=== PATIENT | female | born 1985 | race Caucasian/White ===

== ENCOUNTER → 2017-09-06 | Day surgery (SDC) | payer BC ==
[~2017-09-06] MED LIST: LIDOCAINE 1% PF 2 ML VIAL. ID; LIDOCAINE 2% PF Vial for OR 5 ML VIAL.; MIDAZOLAM HCL/PF 2 MG/2 ML VIAL. IV; PROPOFOL 20 ML IV; PROPOFOL 40 ML IV; fentaNYL PF VIAL 100 MCG/2 ML VIAL IV
[2017-09-06] MEDS: IV RINGERS,LACTATED 1000ML 1,000 ML IV (07:10)
[2017-09-06 07:14] LABS: NEG OBC UR NEG; POS OBC UR POS; U PREG PATIENT NEGATIVE (NEG)
[2017-09-06 10:02] LABS: CALCIUM 8.8 mg/dL (8.5-10.1)
[2017-09-06 10:26] LABS: THYROID STIM HORMONE (TSH) 15.905 uIU/mL (0.358-3.74)
[2017-09-06 19:20] LABS: THYROXINE 6.8 ug/dL (4.5-12.0)
[2017-09-09 15:27] LABS: GLIA IGA 3 units (0-19); GLIA IGG 2 units (0-19); TRANSGLUTAMINASE IGA AB <2 U/mL (0-3); TRANSGLUTAMINASE IGG AB <2 U/mL (0-5)
== END | disposition home or self-care (01) ==
LOC: SURG 06:39
DX: D12.3 Benign neoplasm of transverse colon (principal); D12.5 Benign neoplasm of sigmoid colon; K64.0 First degree hemorrhoids; Z72.89 Other problems related to lifestyle; F17.200 Nicotine dependence, unspecified, uncomplicated; Z83.79 Family history of other diseases of the digestive system; K21.9 Gastro-esophageal reflux disease without esophagitis
CPT/HCPCS: 36415; 45380; 45385; 81025; 82310; 83516; 84436; 84443; 88305; J2001; J2704

== ENCOUNTER 2021-06-09 06:51 | Day surgery (SDC) | payer BC ==
[~2021-06-09] VITALS: Ht 166.4 cm; Wt 86.0 kg
[~2021-06-09 06:51] MED LIST changes: +ESOM20CA PO; +IV RINGERS,LACTATED 1000ML 1,000 ML IV SCH; +LEVO150T5 PO; -LIDOCAINE 1% PF 2 ML VIAL. ID; +LIDOCAINE 1% PF 30 ML VIAL. ONE; +LIDOCAINE 2% PF 5 ML VIAL. ONE; -LIDOCAINE 2% PF Vial for OR 5 ML VIAL.; -MIDAZOLAM HCL/PF 2 MG/2 ML VIAL. IV; +PROCHLORPERAZINE 10 MG/2 ML VIAL. IVP PRN; +PROPOFOL 10 MG/ML (20ML) VIAL. IV ONE; -PROPOFOL 20 ML IV; -PROPOFOL 40 ML IV; +SUMA100T4 PO; +TOPI50TA8 PO; -fentaNYL PF VIAL 100 MCG/2 ML VIAL IV; +fentaNYL PF VIAL 100 MCG/2 ML VIAL IVP PRN
[2021-06-09] MEDS ORDERED: BUPIVACAINE MPF 0.25% 30 ML VIAL. ONE (07:13)
[2021-06-09 07:24] VITALS: BP 104/61
--- NOTE | 2021-06-09 07:38 | DISCH ---
DISCHARGE INSTRUCTIONS Condition on Discharge Condition on Discharge: Stable Activity After Discharge Activity Instructions for Disc: Resume previous activity, Activity as cortez ated, Avoid exertion Bathing Instructions: Shower-keep dressing dry Lifting Instructions after Dis: No heavy lifting, No pulling or pushing, Do not lift >10 pounds Exercise Instruction after Dis: Walk 10 min, 3 x per day Driving Instructions after Dis: Do not drive (while taking narcotic pain meds) Diet after Discharge Diet after Discharge: Regular Wound Incision Care Wound/Incision Care: Ice to area for comfort, Keep wound elevated, Change dressing (POD #3), Other, see below (Cover incision with large bandaid until first follow up. Do not sumbmerge in water under any circumstances.) Other wound/incision instructi: Keep dressing clean and dry. May remove on post-op day #3. Contacting the DRShanda after DC Call your doctor for: If your condition worsens Follow-Up Follow up with: Follow up with orthopedic clinic upon discharge. [phone] Treatment/Equipment after DC Adaptive Equipment Issued: None KRISTY POTTER Jun 09, 2021 07:38
[2021-06-09] MEDS ORDERED: TRAM50TA PO (07:39)
[2021-06-09] MEDS ORDERED: ONDA4TAB12 PO (07:41)
--- NOTE | 2021-06-09 08:23 | HP ---
DATE OF SERVICE: 06/09/2021 ADMIT DATE: 06/09/2021 PREOP HISTORY AND PHYSICAL PREOPERATIVE DIAGNOSIS: Carpal tunnel syndrome, bilateral. BRIEF HISTORY: The patient is a 35-year-old right hand dominant female who was previously seen in the office back in March continuing with significant wrist pain as she discussed it over the last 10 years. This is associated with significant amount of numbness and tingling in the thumb and index finger of the hand. Sometimes, it will involve the middle finger. She has noticed some weakness as far as her pinch is concerned. She sees a chiropractor who was trying to alleviate the symptoms, which helped for her for about a year after that; however, this continued to have significant problems. She therefore has unremitting pain and did undergo an EMG study. PAST MEDICAL HISTORY: Remarkable for a rotator cuff, hyperthyroidism. PAST SURGICAL HISTORY: Cholecystectomy in 2019. FAMILY HISTORY: Diabetes and hypertension, history of coronary artery disease. SOCIAL HISTORY: The patient is a current smoker, smokes 1 pack of cigarettes per day, drinks alcohol 2-4 times per month with 3-4 drinks per occasion. MEDICATIONS: Topiramate, esomeprazole, sumatriptan. MEDICATION ALLERGIES: No known drug allergies. PHYSICAL EXAMINATION: GENERAL: She is alert and oriented x 3. VITAL SIGNS: She is 65.5 inches tall. She is 190 pounds. Vital signs are stable today. HEART: Her heart is clear. Regular rate and rhythm. LUNGS: Her lungs stovall are clear to auscultation in all stovall. ABDOMEN: Soft and nontender. MUSCULOSKELETAL: The examination reveals her to be positive Tinel's and a positive Phalen's test as well as positive carpal compression test bilaterally at this point. Decreased sensation in the median distribution, which is quite significant. IMPRESSION: Bilateral carpal tunnel syndrome, right greater than left. PLAN: At this time, we have gone over the EMG again that was done by Dr. Hernández. We have also talked with the patient about treatment options. She still wishes to undergo a carpal tunnel release on the right. Therefore, we have gone over the risks, complications as well as benefits and expectations of surgery, postoperative protocol and followup. We will get this done as soon as she sees anesthesia. RODO/RAYMOND DR: Jorge L TID: [id number]
[2021-06-09] MEDS ORDERED: KETOROLAC 30 MG/ML VIAL. ONE (08:59)
--- NOTE | 2021-06-09 09:02 | PDOC4 ---
OPERATIVE NOTE Date: Date: Jun 09, 2021 Pre-Op Diagnosis: 1. 35 y/o F carpal tunnel syndrome RUE Post-Op Diagnosis: Same Procedure Performed: 1. R open carpal tunnel release Surgeon: Fanta Anesthesia Type: General Blood Loss: 10cc Specimans Obtained: None Complications: Patient tolerated the procedure well without any complications acutely. Operative Note: See dictation. KRISTY POTTER Jun 09, 2021 09:02
[2021-06-09] MEDS ORDERED: fentaNYL PF VIAL 100 MCG/2 ML VIAL ONE ×2 (09:05→09:36)
[2021-06-09] MEDS ORDERED: PROPOFOL 10 MG/ML (20ML) VIAL. IV ONE (09:05)
[2021-06-09] MEDS ORDERED: DEXAMETHASONE SOD PHOS 4 MG/ML VIAL ONE (09:12)
[2021-06-09] MEDS ORDERED: ONDANSETRON PF 4 MG/2 ML VIAL. ONE (09:12)
[2021-06-09] MEDS ORDERED: SEVOFLURANE 31 TO 60 MINUTES. IH ONE (09:27)
[2021-06-09] MEDS ORDERED: traMADol 50 MG TABLET PO ONE (09:30)
[2021-06-09] MEDS: fentaNYL PF VIAL 100 MCG/2 ML VIAL IVP PRN ×2 (09:38→09:46)
[2021-06-09 10:00] VITALS: BP 100/61
--- NOTE | 2021-06-09 14:48 | OP ---
DATE OF SURGERY: 06/09/2021 PREOPERATIVE DIAGNOSIS: Carpal tunnel syndrome, chronic, right. POSTOPERATIVE DIAGNOSIS: Carpal tunnel syndrome, chronic, right. PROCEDURE: Right carpal tunnel release. SURGEON: Antwan Jewell Jr, DO ANESTHESIA: General. COMPLICATIONS: None. ESTIMATED BLOOD LOSS: 5 mL DESCRIPTION OF PROCEDURE: Right upper extremity was then prepped and draped in a sterile fashion. Incision was made directly over the area of the transverse carpal ligament in line with the radial border of the digit. This was carefully down through skin and subcutaneous tissues down through the palmar fascia. Once through the palmar fascia, the transverse carpal ligament was identified at this point. A minimal portion of the insertion of the thenar musculature was removed in order to make the incision longitudinally through the transverse carpal ligament, which was released in its entirety. The underlying nerve was noted to be intact. The wound was then thoroughly irrigated. It was reapproximated in an interrupted fashion using 3-0 nylon. The wound was then infiltrated with local. Sterile dressing was applied. The tourniquet was deflated with good return of pulses and capillary refill. The patient was then taken from the operative bed to the postoperative bed, taken to the PACU in stable condition. MARQUIS/HUSSEIN DR: Jorge L TID: [id number]
== END 2021-06-09 10:25 | disposition home or self-care (01) ==
LOC: SURG 06:51
PROVIDERS: ATTEND Orthopaedic Surgery
DX: G56.01 Carpal tunnel syndrome, right upper limb (principal); K21.9 Gastro-esophageal reflux disease without esophagitis; E03.9 Hypothyroidism, unspecified; F17.210 Nicotine dependence, cigarettes, uncomplicated; Z79.899 Other long term (current) drug therapy; Z90.49 Acquired absence of other specified parts of digestive tract; Z98.890 Other specified postprocedural states; Z82.49 Family history of ischemic heart disease and other diseases of the circulatory system; Z83.3 Family history of diabetes mellitus; Z88.5 Allergy status to narcotic agent
CPT/HCPCS: 64721; 81025; A4930; A6402; J0690; J1100; J1885; J2405; J2704; J3010; J3490; A4223; A4657; A6452